=== PATIENT | female | born 1990 | race Hispanic/Latino ===

== ENCOUNTER 2018-09-22 15:31 | Outpatient (CLI) | payer OTHER, SELFPAY | END 2018-09-22 16:25 | disposition home or self-care (01) | LOC: LABOR 16:07 → OB 09-25 12:28 | PROVIDERS: PCP Nurse Practitioner Family | DX: O24.419 Gestational diabetes mellitus in pregnancy, unspecified control (principal); Z3A.37 37 weeks gestation of pregnancy | CPT/HCPCS: 59025; G0378; G0379 ==

== ENCOUNTER 2018-09-26 13:57 | Outpatient (CLI) | payer OTHER, SELFPAY | END 2018-09-26 14:45 | disposition home or self-care (01) | LOC: LABOR 14:23 → OB 09-27 13:54 | PROVIDERS: PCP Nurse Practitioner Family; Visit Provider Obstetrics & Gynecology | DX: O24.415 Gestational diabetes mellitus in pregnancy, controlled by oral hypoglycemic drugs (principal); Z3A.38 38 weeks gestation of pregnancy | CPT/HCPCS: 59025; G0378; G0379 ==

== ENCOUNTER 2018-09-29 14:04 | Outpatient (CLI) | payer OTHER, SELFPAY | END 2018-09-29 14:50 | disposition home or self-care (01) | LOC: LABOR 14:50 → OB 10-03 09:36 | PROVIDERS: PCP Nurse Practitioner Family | DX: O24.419 Gestational diabetes mellitus in pregnancy, unspecified control (principal); Z3A.38 38 weeks gestation of pregnancy | CPT/HCPCS: 59025; G0378; G0379 ==

== ENCOUNTER 2018-10-02 14:54 | Outpatient (CLI) | payer OTHER, SELFPAY | END 2018-10-02 16:40 | disposition home or self-care (01) | LOC: LABOR 15:26 → OB 10-04 13:09 | PROVIDERS: PCP Nurse Practitioner Family | DX: O24.419 Gestational diabetes mellitus in pregnancy, unspecified control (principal); Z3A.39 39 weeks gestation of pregnancy | CPT/HCPCS: 59025; 59050; G0378; G0379 ==

== ENCOUNTER 2018-10-03 04:55 | Inpatient (IN) | payer OTHER, SELFPAY ==
[2018-10-03] MEDS: LACTATED RINGERS 1,000 ML 100 ML IV (07:15)
--- NOTE | 2018-10-03 07:25 | PM.AN.REGBLK ---
Regional Block Pre-procedure Procedure: Continuous Lumbar Epidural for L&D Attending OB provider: Clayton Saravia PMH/ROS narrative: term labor, gestational diabetes on metformin well controlled. Hx: No personal or family history of anesthesia problems. PSH/Anesthesia history narrative: 2 previous , epidural analgesia, no complications ASA Class: II Labs: Hct 36.4 % (36-46) 10/03/18 07:54 Plt Count 184 X10^3/uL (150-400) 10/03/18 07:54 Medications: Current Medications Generic Name Dose Route Start Last Admin Trade Name Freq PRN Reason Stop Dose Admin Hydrocodone Bitart/Acetaminophen 1 tab 10/03/18 13:09 [place] 5/325 PO Q4HR TESSA Benzocaine 1 spray 10/03/18 13:09 Dermoplast [place] TOP Q1HR PRN perineal pain Docusate Sodium 250 mg 10/04/18 09:[address] [facility] Emollient Ointment 1 applic 10/03/18 13:09 Nhu-H-Wvitsr TOP PRN PRN Tenderness Ferrous Gluconate 324 mg 10/04/18 09:[address] [facility] Ibuprofen 600 mg 10/03/18 13:09 Advil PO Q6HR PRN Pain, Mild (1-3) Ketorolac Tromethamine 30 mg 10/03/18 13:09 Toradol IV Q6HR PRN Pain, Moderate (4-6) Naloxone HCl 0.2 mg 10/03/18 13:09 Narcan IV Q2MIN PRN Opiate Reversal Oxycodone/Acetaminophen 2 tab 10/03/18 13:09 Percocet 5/[address] [facility] Vit/Calcium/Iron/Folic Ac 1 tab 10/04/18 09:00 [address]ren[address]abs [address] PO DAILY [facility] Allergies: NKDA --: CSE: Seated. Monitors. Sterile prep/drape. L3-4 identified by palpation and surface landmarks. Lidocaine local. Hustead advanced with RYAN saline at 5 cm. 27g Pencan passed through Hustead. Clear CSF. 1mL 0.25% MPF Bupivacaine injected intrathecal. Catheter advanced to 11cm at skin, 6cm in epidural space. Test dose at 0733 with 3mL 1.5% lidocaine with epi, negative. Catheter secured. Tegaderm. Infusion of 0.125% bupivacaine with fentanyl 2mcg/mL initiated at 0741. Pt comfortable. VSS.
--- NOTE | 2018-10-03 07:53 | P.HPOB_ITS ---
OB HPI Date/Time Date of admission: 10/03/18 Date Patient Seen: 10/03/18 Time Patient Seen: 07:45 History of Present Condition Chief complaint: EVALUATION OF LABOR : 3 Para: 2 Estimated Date of Delivery: 10/07/18 Estimated Gestational Age (weeks): 39 3 Narrative: Elana Still is a 28 year old female three para two who transferred care from the [facility] at 35 weeks of . The patient was a gestational diabetic though her 1 hour screen was 135. She is placed on metformin and transferred care because of her gestational diabetes. Her blood sugars have remained absolutely normal. Her weight has been stable. She has remained normotensive. Her urines have been negative for glucose and protein. All of her antepartum laboratory data is within normal limits. Patient presented in active labor History of Present care: good care, initiated at week # (11) and number of visits (13) Dating criteria: LMP confirmed by 1st trimester US Ultrasounds: normal 1st trimester US and normal mid trimester US Obstetrical complications: gestational diabetes Medical complications: none Preadmission Labs Blood type: O (+) positive -: Antibody screen: negative, Cystic fibrosis screen: unknown, GBS status: negative (Done at the [facility]), HBsAG: negative, HIV: negative, HSV 1: negative, HSV 2: negative and RPR/VDLR: negative -: Chlamydia screen: detected (Negative) and Gonorrhea screen: detected (Negative) -: Rubella: immune and Varicella: immune HCT: 30.5 HCAB: negative PAP: Normal Integrated screen: Negative 1 hr GTT: 135 Evaluation Evaluation Variability: Moderate (11-25) monitor accelerations: Present monitor decelerations: Absent Contraction Frequency (minutes): 3 Uterine Contraction Intensity: Strong/Firm Category of Tracing: I Cervical dilation (cm): 3 Cervical effacement (%): 80 station: 0 Non-invasive Membranes Rupture Test: positive [facility] Medical History Headache (Chronic) Migraines (Chronic) Surgical History Anesthesia (Resolved) History of appendectomy (Resolved ~2010) History of tonsillectomy (Resolved ~2010) [place] teeth removed (Resolved ~2014) Family History (Updated 09/29/18 @ 21:11 by Jacquie Barker) Father Diabetes mellitus History of heart disease Hypertension Stroke Grandfather Mental health problem Grandmother Diabetes mellitus History of heart disease Hypertension Family History Father Diabetes mellitus History of heart disease Hypertension Stroke Grandfather Mental health problem Grandmother Diabetes mellitus History of heart disease Hypertension Review of Systems Review of Systems All systems reviewed & are unremarkable except as noted in HPI and below Exam Const General: cooperative and healthy appearing HENMT Head: normal to inspection Ears: hearing grossly normal bilaterally Nose: external nose normal Face and sinus: normal facial exam Mouth: oral mucosae normal, lip normal, tongue normal and moist mucous membranes Teeth and gingiva: dentition normal Throat: posterior oropharynx normal Eyes General: appearance normal, both eyes and all related structures Neck Neck: normal visual inspection and full ROM Chest Chest: normal inspection of the chest and normal palpation of entire chest wall Breast inspection: normal inspection of the breasts and normal inspection of the axillae Breast Palpation: normal palpation of the breasts and normal palpation of the axillae Resp Effort & Inspection: normal respiratory effort Auscultation: clear to auscultation bilaterally Cardio Palpation: normal PMI Rate: regular rate Rhythm: regular rhythm Heart Sounds: S1 normal and S2 normal GI Inspection: normal to inspection Palpation: soft and no hepatosplenomegaly Percussion: normal to percussion Auscultation: normal bowel sounds OB/External & Speculum: external exam normal Manual OB Exam: dilated 3, effaced 75% and station 0 Presentation: vertex Amniotic Fluid: clear Back/Spine/Pelvis Thoracic/Lumbar Spine: thoracic and lumbar spine normal to inspection Skin General: no rashes or lesions noted Neuro General: alert, oriented x3, tone normal and moves all extremities Cognition: normal cognition Speech: speech normal Gait: normal gait Motor: muscle tone normal throughout Sensory Exam: no sensory deficits noted Extrem General: normal to inspection and normal exam except as noted Psych Appearance: grossly normal and well kempt Mental Status: mental status grossly normal Speech and Movement: speech and movement normal Assessment and Plan Assessment and Plan Assessment and Plan narrative: Term intrauterine Gestational diabetes on metformin normal blood sugar Activel labor with rupture membranes Plan is for epidural anesthesia
[2018-10-03 08:02] LABS: Add Manual Diff / Slide Review NO; Basophils Absolute Auto 0 /uL (0-100); Basophils Percent Auto 0.2 % (0-2); Eosinophils Absolute Auto 200 /uL (0-450); Eosinophils Percent Auto 1.6 % (2-4); Hematocrit 36.4 % (36-46); Hemoglobin 12.3 g/dL (12.0-16.0); Lymphocytes Absolute Auto 2400 /uL (1100-4500); Lymphocytes Percent Auto 22.8 % (25-40); Mean Corpuscular Hemoglobin 28.1 PG (26-34); Mean Corpuscular Volume 82.8 fL (80-100); Monocytes Absolute Auto 700 /uL (0-900); Monocytes Percent Auto 6.4 % (3-14); Neutrophils Absolute Auto 7200 /uL (1500-7000); Platelet Count 184 X10^3/uL (150-400); Red Blood Cell Count 4.39 X10^6/uL (4.0-5.2); Red Cell Distribution Width 16.9 % (11.6-14.8); White Blood Cell Count 10.4 X10^3/uL (4.5-11.0)
[2018-10-03 09:02] VITALS: BP 132/73
[2018-10-03] MEDS: PENICILLIN G POTASSIUM 5,000,000 UNIT in DEXTROSE 5% IN WATER 250 ML IV (09:13)
--- NOTE | 2018-10-03 10:28 | PM.OBPRVD ---
Delivery date: 10/03/18 Intrapartal events: None Cervical ripening method: none Induction method: none Delivery monitor: external FHT and external uterine Route of delivery: L&D Laceration Description: None Estimated blood loss (mL): 200 Anesthesia type: Epidural Complications: None Narrative: Patient presented in active labor. Had spontaneous rupture membranes with light meconium. Had a rapid labor and spontaneous vaginal delivery of a live-born male with scores of nine at 1 minute nine at 5 minutes in good condition. There was no episiotomy or perineal tear. There are no cervical or vaginal lacerations. There were no periurethral lacerations. Placenta delivered spontaneously. Cord had three vessels. Cord blood was obtained. Pitocin was administered. Estimated blood loss was 200 cc Plan for aftercare: Routine care
--- NOTE | 2018-10-03 16:26 | P.PCN_ITS ---
Regional Block Pre-procedure Procedure: Continuous Lumbar Epidural for L&D Attending OB provider: Clayton Saravia PMH/ROS narrative: term labor, gestational diabetes on metformin well controlled. Hx: No personal or family history of anesthesia problems. PSH/Anesthesia history narrative: 2 previous , epidural analgesia, no complications ASA Class: II Labs: Hct 36.4 % (36-46) 10/03/18 07:54 Plt Count 184 X10^3/uL (150-400) 10/03/18 07:54 Medications: Current Medications Generic Name Dose Route Start Last Admin Trade Name Freq PRN Reason Stop Dose Admin Hydrocodone Bitart/Acetaminophen 1 tab 10/03/18 13:09 [place] 5/325 PO Q4HR TESSA Benzocaine 1 spray 10/03/18 13:09 Dermoplast [place] TOP Q1HR PRN perineal pain Docusate Sodium 250 mg 10/04/18 09:00 Colace PO DAILY [facility] Emollient Ointment 1 applic 10/03/18 13:09 Gyj-S-Ulaoay TOP PRN PRN Tenderness Ferrous Gluconate 324 mg 10/04/18 09:00 Fergon PO DAILY [facility] Ibuprofen 600 mg 10/03/18 13:09 Advil PO Q6HR PRN Pain, Mild (1-3) Ketorolac Tromethamine 30 mg 10/03/18 13:09 Toradol IV Q6HR PRN Pain, Moderate (4-6) Naloxone HCl 0.2 mg 10/03/18 13:09 Narcan IV Q2MIN PRN Opiate Reversal Oxycodone/Acetaminophen 2 tab 10/03/18 13:09 Percocet 5/325 PO Q4HR [facility] Vit/Calcium/Iron/Folic Ac 1 tab 10/04/18 09:00 Prenatabs Rx PO DAILY [facility] Allergies: NKDA --: CSE: Seated. Monitors. Sterile prep/drape. L3-4 identified by palpation and surface landmarks. Lidocaine local. Hustead advanced with RYAN saline at 5 cm. 27g Pencan passed through Hustead. Clear CSF. 1mL 0.25% MPF Bupivacaine injected intrathecal. Catheter advanced to 11cm at skin, 6cm in epidural space. Test dose at 0733 with 3mL 1.5% lidocaine with epi, negative. Catheter secured. Tegaderm. Infusion of 0.125% bupivacaine with fentanyl 2mcg/mL initiated at 0741. Pt comfortable. VSS.
[2018-10-03 16:54] VITALS: TEMP 36.4
[2018-10-03] MEDS: IBUPROFEN 600 MG TABLET PO ×2 (16:54→23:09)
[2018-10-03] MEDS: HYDROCODONE/ACET 5/325 TABLET 1 TAB PO (20:15)
[2018-10-04 05:50] LABS: Hematocrit 32.4 % (36-46); Hemoglobin 10.9 g/dL (12.0-16.0)
[2018-10-04] MEDS: IBUPROFEN 600 MG TABLET PO (06:40)
--- NOTE | 2018-10-04 07:18 | PM.OBDS.1 ---
Discharge Providers Date of admission: 10/03/18 04:55 Discharge Date: 10/04/18 Primary care physician: CONSTANZA Vo Consults: 10/03/18 13:09 Consult to Tip Out Worker Routine Comment: Consult to Lift Truck Mechanic Routine Comment: Discharge provider: Clayton Saravia MD Summary Date Patient Seen: 10/04/18 Time Patient Seen: 07:18 Procedures: Epidural anesthesia Artificial rupture membranes Spontaneous vaginal delivery Hospital Course: The patient is a 28-year-old three para two who presented in active labor. Patient was a gestational diabetic on metformin. Membranes were ruptured and fluid showed light meconium. An epidural was placed. Patient made rapid progress to complete and delivered spontaneously a live born male with scores of nine at 1 minute nine at 5 minutes in good condition. The baby weighed 9 lb 4 oz. There were no perineal tears no vaginal tears no cervical tears. The estimated blood loss was 200 cc. Post delivery the patient did well. She remained afebrile stable vital signs and was progressively alimented and ambulated. She was discharged home for follow-up in four weeks Peripartum Data Delivery Method: Natural Vaginal Laceration description: None complications: none Status at Discharge Cognitive/behavioral status at discharge: oriented Functional status at discharge: independent ambulation Overall status at discharge: patient is progressing back to baseline Time Spent with Patient Total time spent providing and/or coordinating discharge services: Objective Labs Result Diagrams: 10/04/18 05:30 Labs: Laboratory Results - last 24 hr 10/03/18 10/03/18 10/04/18 07:54 07:54 05:30 WBC 10.4 RBC 4.39 Hgb 12.3 10.9 L Hct 36.4 32.4 L MCV 82.8 MCH 28.1 MCHC 34.0 RDW 16.9 H Plt Count 184 Neut % (Auto) 69.0 Lymph % (Auto) 22.8 L [place] % (Auto) 6.4 Eos % (Auto) 1.6 L Baso % (Auto) 0.2 Neut # (Auto) 7200 H Lymph # (Auto) 2400 [place] # (Auto) 700 Eos # (Auto) 200 Baso # (Auto) 0 Blood Type O Positive Antibody Screen Negative Exam Narrative Exam Narrative: Fundus U minus two Lochia scant Perineum without ecchymosis Discharge Plan Discharge Plan Patient Disposition: Home Discharge Med Rec/Prescriptions Prescriptions: New Dermoplast (with menthol) 20-0.5 % Aerosol 1 spray topical Q1HR PRN (Reason: perineal pain) Qty: 1 RF: 0 oxycodone-acetaminophen 5-325 mg Tablet 2 tab PO Q4HR Qty: 10 RF: 0 ibuprofen 600 mg Tablet 600 mg PO Q6HR PRN (Reason: Pain, Mild (1-3)) Qty: 14 RF: 0 docusate sodium 250 mg Capsule 250 mg PO DAILY Qty: 14 RF: 0 Ymv-O-Vowqla Cream 1 applic topical PRN PRN (Reason: Tenderness) Qty: 1 RF: 0 ferrous gluconate 324 mg (38 mg iron) Tablet 324 mg PO DAILY Qty: 60 RF: 0 Follow up/Referrals: Holly Fox ARNP [Primary Care Provider] - Clayton Saravia MD [Physician] - 10/27/18 Provider Discharge Instructions Diet: Diet as Tolerated Activity: Routine Skin/Wound/Dressing Care Report to your healthcare provider any signs of infection, such as:: chills, fever, increased pain, unusual drainage and unusual redness Discharge Data Primary Care Provider: Holly Fox Attending Provider: Clayton Saravia Admit Date/Time: 10/03/18 04:55
[2018-10-04] MEDS: PRENATAL VIT,CALC/IRON/FOLIC 1 TABLET 1 TAB PO (10:22)
[2018-10-04] MEDS: FERROUS GLUCONATE 324 MG TABLET PO (10:22)
[2018-10-04] MEDS: DOCUSATE 250 MG CAPSULE PO (10:22)
[2018-10-04 13:17] VITALS: BP 132/73; PULSE 80; RESP 18; TEMP 36.4
== END 2018-10-04 15:30 | disposition home or self-care (01) | DRG 807 ==
PROVIDERS: PCP Nurse Practitioner Family
DX: O24.425 Gestational diabetes mellitus in childbirth, controlled by oral hypoglycemic drugs (principal); Z37.0 Single live birth; Z3A.39 39 weeks gestation of pregnancy
CPT/HCPCS: 01967; 36415; 59050; 59410; 85014; 85018; 85025; 86850; 86900; 86901; G0379; J2540

== ENCOUNTER → 2019-10-10 15:25 | Outpatient (CLI) | payer OTHER, SELFPAY | PROVIDERS: PCP Nurse Practitioner Family; Visit Provider Obstetrics & Gynecology | DX: R82.90 Unspecified abnormal findings in urine (principal) | CPT/HCPCS: 87086 ==

== ENCOUNTER → 2019-10-23 16:58 | Outpatient (CLI) | payer OTHER, SELFPAY ==
[2019-10-24 19:27] LABS: Strep Grp B PCR NEG for Grp B Strep
== END ==
PROVIDERS: PCP Nurse Practitioner Family; Visit Provider Obstetrics & Gynecology
DX: Z34.83 Encounter for supervision of other normal pregnancy, third trimester (principal); Z3A.36 36 weeks gestation of pregnancy
CPT/HCPCS: 87653

== ENCOUNTER 2019-11-13 12:14 | Inpatient (IN) | payer OTHER, SELFPAY ==
[2019-11-13] MEDS: METHYLERGONOVINE 0.2 MG/ML VIAL IM (13:15)
[2019-11-13] MEDS: fentaNYL 100 MCG/2 ML INJ (13:35)
[2019-11-13 14:01] LABS: Add Manual Diff / Slide Review NO; Basophils Absolute Auto 100 /uL (0-100); Basophils Percent Auto 0.4 % (0-2); Eosinophils Absolute Auto 200 /uL (0-450); Eosinophils Percent Auto 1.5 % (2-4); Hematocrit 38.4 % (36-46); Hemoglobin 12.3 g/dL (12.0-16.0); Lymphocytes Absolute Auto 4000 /uL (1100-4500); Lymphocytes Percent Auto 28.7 % (25-40); Mean Corpuscular HGB Conc 32.1 % (30-36); Mean Corpuscular Hemoglobin 26.8 PG (26-34); Mean Corpuscular Volume 83.6 fL (80-100); Monocytes Absolute Auto 1200 /uL (0-900); Monocytes Percent Auto 8.6 % (3-14); Neutrophils Absolute Auto 8400 /uL (1500-7000); Neutrophils Percent Auto 60.8 % (50-75); Platelet Count 194 X10^3/uL (150-400); Red Blood Cell Count 4.59 X10^6/uL (4.0-5.2); Red Cell Distribution Width 16.3 % (11.6-14.8); White Blood Cell Count 13.9 X10^3/uL (4.5-11.0)
[2019-11-13 14:19] LABS: COVID19 -Nasal RAPID Negative (Negative)
[2019-11-13 14:50] VITALS: BP 126/88
[2019-11-13] MEDS: IBUPROFEN 600 MG TABLET PO (15:49)
[2019-11-13 17:24] LABS: Hematocrit 34.4 % (36-46); Hemoglobin 11.3 g/dL (12.0-16.0)
--- NOTE | 2019-11-13 18:33 | P.HPOB_ITS ---
OB HPI Date/Time Date of admission: 11/13/19 Date Patient Seen: 11/13/19 Time Patient Seen: 12:30 History of Present Condition Chief complaint: Labor & Delivery : 4 Para: 3 Estimated Date of Delivery: 11/17/19 Estimated Gestational Age (weeks): 39+ 3 Narrative: Elana Still is a 29 year old female 4 para 3 who presented to Labor and delivery in active labor an 8-9 cm dilated. Shortly after arrival she had spontaneous rupture membranes with moderate meconium stained amniotic fluid. Indications Other reason(s) for admission: Active labor History of Present care: good care, initiated at week # (9), number of visits (9) and pounds weight gain (37) Dating criteria: LMP confirmed by 1st trimester US Ultrasounds: normal 1st trimester US and normal mid trimester US Obstetrical complications: none Medical complications: none Preadmission Labs Blood type: O (+) positive -: Antibody screen: negative, GBS status: negative, HBsAG: negative, HIV: negative and RPR/VDLR: negative -: Chlamydia screen: not detected and Gonorrhea screen: not detected -: Rubella: immune HCT: 34.4 PAP: Normal 1 hr GTT: 170 3 hr GTT: 1 hr (175), 2 hr (178) and 3 hr (76) Fasting blood glucose: 84 Prior (ies) History: Three spontaneous vaginal deliveries. Gestational diabetes with the 2nd and 3rd pregnancies. Evaluation Evaluation Baseline heart rate: 140 Contraction Frequency (minutes): 3 Uterine Contraction Intensity: Strong/Firm Cervical dilation (cm): 8 Cervical effacement (%): 100 station: -2 Laboratory results: Laboratory Tests 11/13/19 11/13/19 11/13/19 12:20 12:20 13:55 WBC 13.9 H RBC 4.59 Hgb 12.3 Hct 38.4 MCV 83.6 MCH 26.8 MCHC 32.1 RDW 16.3 H Plt Count 194 Neut % (Auto) 60.8 Lymph % (Auto) 28.7 [place] % (Auto) 8.6 Eos % (Auto) 1.5 L Baso % (Auto) 0.4 Neut # (Auto) 8400 H Lymph # (Auto) 4000 [place] # (Auto) 1200 H Eos # (Auto) 200 Baso # (Auto) 100 COVID-19 PCR Negative Blood Type O Positive Antibody Screen Negative Crossmatch See Detail 11/13/19 17:15 WBC RBC Hgb 11.3 L Hct 34.4 L MCV MCH MCHC RDW Plt Count Neut % (Auto) Lymph % (Auto) [place] % (Auto) Eos % (Auto) Baso % (Auto) Neut # (Auto) Lymph # (Auto) [place] # (Auto) Eos # (Auto) Baso # (Auto) COVID-19 PCR Blood Type Antibody Screen Crossmatch Comments: Bulging bag of water [facility] Medical History (Updated 10/10/19 @ 14:51 by Raissa Bae MD) Bilateral knee pain (Acute) Gestational diabetes mellitus, class A2 (Acute) Group B Streptococcus carrier state affecting (Acute) H/O macrosomia in infant in prior , currently (Acute) Headache (Chronic) History of gestational diabetes (Acute) Maternal obesity affecting , antepartum (Acute) Migraines (Chronic) Obese (Acute) Pain in right wrist (Acute) Pain of both hip joints (Acute) Plantar fasciitis (Acute) (spontaneous vaginal delivery) (Acute) Surgical History (Updated 09/24/19 @ 16:37 by Minnie Santos RN) Anesthesia (Resolved) History of appendectomy (Resolved ~2010) History of tonsillectomy (Resolved ~2010) [place] teeth removed (Resolved ~2014) Family History Father Diabetes mellitus History of heart disease Hypertension Stroke Grandfather Mental health problem Alzheimer disease Grandmother Diabetes mellitus History of heart disease Hypertension Mother Arthritis, rheumatoid Grandfather Diabetes mellitus Family estrangement Grandmother Unknown family medical history Social History marital status: ([facility] [phone]) number of children: 3 household members: spouse and children lives independently: Yes pets and animals: No education level: high school occupational status: unemployed (Homemaker) jose/oriental orthodox: [employer]ism special jose needs: No Smoking Status: Never smoker second hand exposure: No alcohol intake: never substance use type: does not use caffeine: Yes Type(s) of exercise: walking frequency: 3-4 times per week duration: 30-45 minutes/day Meds Home Medications and Allergies Home Medications Medication Instructions Recorded Confirmed Type prenat.vits,adan,bmh-zbpl-zykjj 1 tab PO DAILY 10/27/18 11/13/19 History Allergies Allergy/AdvReac Type Severity Reaction Status Date / Time lactose AdvReac Severe Bloating Verified 11/06/19 15:35 Exam Vital Signs (past 8 hours): - 11/13/19 14:50 Blood Pressure 126/88 Narrative Exam Narrative: Generally: Patient in moderate distress secondary to contractions and imminent delivery Objective Labs Result Diagrams: 11/13/19 17:15 Labs: Laboratory Results - last 24 hr 11/13/19 11/13/19 11/13/19 12:20 12:20 13:55 WBC 13.9 H RBC 4.59 Hgb 12.3 Hct 38.4 MCV 83.6 MCH 26.8 MCHC 32.1 RDW 16.3 H Plt Count 194 Neut % (Auto) 60.8 Lymph % (Auto) 28.7 [place] % (Auto) 8.6 Eos % (Auto) 1.5 L Baso % (Auto) 0.4 Neut # (Auto) 8400 H Lymph # (Auto) 4000 [place] # (Auto) 1200 H Eos # (Auto) 200 Baso # (Auto) 100 COVID-19 PCR Negative Blood Type O Positive Antibody Screen Negative Crossmatch See Detail 11/13/19 17:15 WBC RBC Hgb 11.3 L Hct 34.4 L MCV MCH MCHC RDW Plt Count Neut % (Auto) Lymph % (Auto) [place] % (Auto) Eos % (Auto) Baso % (Auto) Neut # (Auto) Lymph # (Auto) [place] # (Auto) Eos # (Auto) Baso # (Auto) COVID-19 PCR Blood Type Antibody Screen Crossmatch Assessment and Plan Assessment and Plan Assessment and Plan narrative: Assessment: 29-year-old 4 para 3 at 39-,3/7 weeks gestation in active labor with imminent delivery Spontaneous rupture of membranes with moderate meconium stained fluid Group B strep negative Plan: RT present Pediatrics called Back up OB called for possible shoulder dystocia Expected management to delivery
--- NOTE | 2019-11-13 18:38 | P.PCNOB_ITS ---
Events: Meconium Stained Fluid Labor & Delivery Delivery date: 11/13/19 Intrapartal events: Precipitous Labor < 3 hours Cervical ripening method: none Induction method: none Delivery monitor: external FHT Route of delivery: Episiotomy description: None L&D Laceration Description: None Estimated blood loss (mL): 1,200 Anesthesia type: None Complications: hemorrhage Narrative: Patient had spontaneous rupture membranes with moderate meconium stained amniotic fluid. With the next contraction she pushed x2, and the vertex delivered over an intact perineum at 12:31 p.m.. No nuchal cord. There was a mild shoulder dystocia that was relieved with cipriano Khanna maneuver. The infant was placed on mom's abdomen. The cord was double clamped and cut. Cord bloods were obtained. 10 units of Pitocin were given IM. The placenta delivered intact with a 3 vessel cord at 12:46 p.m.. No lacerations. Male. Apgars 8 at 1 minute and 9 at 5 minutes. Weight 11 lb 15 oz. . Baby was in the nursery due to low blood sugars and tachypnea. Mom had increased bleeding and after exploration of the uterine cavity there was a large amount of clot that was manually extracted. Her uterus was firm after that. Bleeding slowed to minimal. Mom was stable to recovery. Baby 1: gender: Male Presentation: vertex Placenta delivery description: Spontaneous cord vessel description: 3 Vessels score (1 min): 8 score (5 min): 9 Narrative: transferred to [place] Plan for aftercare: Mom to routine care
[2019-11-13] MEDS: CALCIUM CARBONATE 500 MG TAB PO (21:37)
[2019-11-14] MEDS: IBUPROFEN 600 MG TABLET PO ×2 (00:04→08:44)
[2019-11-14] MEDS: OXYCODONE/ACETAMINOPHEN 5/325 TABLET 1 TAB PO ×2 (02:17→08:44)
[2019-11-14 06:17] LABS: Hematocrit 28.2 % (36-46); Hemoglobin 9.4 g/dL (12.0-16.0)
[2019-11-14 08:15] VITALS: BP 140/83; PULSE 97; RESP 16; TEMP 36.1
[2019-11-14] MEDS: DOCUSATE 100 MG CAPSULE PO (08:44)
[2019-11-14] MEDS: PRENATAL VIT,CALC/IRON/FOLIC 1 TABLET 1 TAB PO (08:44)
--- NOTE | 2019-11-14 18:07 | PM.OBDS.1 ---
Discharge Providers Provider Date of admission: 11/13/19 12:14 Discharge Date: 11/14/19 Primary care physician: CONSTANZA Vo Discharge provider: Raissa Bae MD Summary Hospital Course Date Patient Seen: 11/14/19 Time Patient Seen: 07:40 Procedures: Spontaneous vaginal delivery Evacuation of uterine clots Hospital Course: Patient is a 29-year-old 4 para 4 day # 1 status post spontaneous vaginal delivery. The patient presented to Labor and delivery in active labor at 8 cm dilated. She had a spontaneous rupture of membranes with moderate meconium stained amniotic fluid. With the next contraction she had a spontaneous vaginal delivery of a male infant. The placenta delivered intact with a three-vessel cord. She had some increased bleeding about 20 minutes after delivery and had a manual extraction of clot from the uterus. She had no lacerations. On day # 1 she is doing well. She was ambulating without assistance. She wanted to be released from the hospital to go to [place] to be with the baby who was transported there due to low blood sugars and tachypnea. Peripartum Data Delivery Method: Natural Vaginal Laceration Description: None Episiotomy description: None Procedures: Spontaneous vaginal delivery Manual extraction of uterine clots complications: other (Retained uterine clots) [place] 1: Gender: Male Disposition of : NICU Status at Discharge Cognitive/behavioral status at discharge: oriented Functional status at discharge: independent ambulation Overall status at discharge: patient is progressing back to baseline Time Spent with Patient Time attestation: Total time spent providing and/or coordinating discharge services: Time spent: Less than 30 minutes Objective Labs Result Diagrams: 11/14/19 06:00 Labs: Laboratory Results - last 24 hr 11/14/19 06:00 Hgb 9.4 L Hct 28.2 L Exam Vital Signs (past 8 hours): Generally: Patient is sitting up in bed, pumping, no acute distress Fundus: Firm at U +1 Extremities: Negative Homans, trace edema Discharge Plan Discharge Plan Patient Disposition: Home Discharge comment: Call with fever, chills or bleeding vaginally more than a pad in an hour Discharge orders & Medications Prescriptions: New ferrous sulfate [iron] 325 mg (65 mg iron) tablet 325 mg PO DAILY Qty: 30 RF: 0 ibuprofen 600 mg tablet 600 mg PO Q6H PRN (Reason: cramping) Qty: 20 RF: 2 oxycodone-acetaminophen [Percocet] 5-325 mg tablet 1 tab PO Q4-6H PRN (Reason: pain) Qty: 14 RF: 0 Continued prenat.vits,adan,ujf-aewa-cyyya tablet 1 tab PO DAILY RF: 0 Follow up/Referrals: Raissa Bae MD [Physician] - 6 Weeks (December 26, [address] Bae for 6 week post check) Diet/Activity/Treatments Diet: Regular Activity: No intercourse for 6 weeks Skin/Wound/Dressing Care Report to your healthcare provider any signs of infection, such as:: chills, fever, increased pain and unusual drainage Visit Report/Discharge Packet Instructions: DI for Labor and Delivery, Vaginal Stand Alone Forms: Discharge: Care Discharge Data Primary Care Provider: Holly Fox Discharges patient from system. Discharge Date/Time: 11/14/19 10:05
== END 2019-11-14 10:05 | disposition home or self-care (01) | DRG 807 ==
PROVIDERS: Admitting Provider Obstetrics & Gynecology; PCP Nurse Practitioner Family; Referring Provider Obstetrics & Gynecology; Visit Provider Obstetrics & Gynecology
DX: O77.0 Labor and delivery complicated by meconium in amniotic fluid (principal); Z37.0 Single live birth; O62.3 Precipitate labor; Z3A.39 39 weeks gestation of pregnancy; Z11.59 Encounter for screening for other viral diseases
CPT/HCPCS: 36415; 59050; 59410; 85014; 85018; 85025; 86850; 86900; 86901; 87635; G0379; J2210; J3010

== ENCOUNTER → 2020-03-21 10:58 | Outpatient (CLI) | payer OTHER, SELFPAY ==
[2020-03-21 11:32] LABS: Hemoglobin A1C% w Est Avg Glu 5.7 % (4.0-6.0)
[2020-03-21 11:59] LABS: Glucose Fasting 84 mg/dL (70-100)
[2020-03-21 13:21] LABS: Glucose Tol Interpretation INTERPRETATION
[2020-03-21 13:30] LABS: Glucose 1 Hour 150 mg/dL (70-170)
[2020-03-21 14:36] LABS: Glucose 2 Hour 127 mg/dL (70-140)
== END ==
PROVIDERS: PCP Nurse Practitioner Family; Referring Provider Nurse Practitioner Family; Visit Provider Obstetrics & Gynecology
DX: O24.419 Gestational diabetes mellitus in pregnancy, unspecified control (principal)
CPT/HCPCS: 36415; 82951; 82952; 83036

== ENCOUNTER → 2020-06-09 16:29 | Outpatient (CLI) | payer OTHER, SELFPAY ==
[2020-06-09 17:14] LABS: Add Manual Diff / Slide Review NO; Basophils Absolute Auto 0 /uL (0-100); Basophils Percent Auto 0.5 % (0-2); Eosinophils Absolute Auto 200 /uL (0-450); Hematocrit 39.2 % (36-46); Hemoglobin 13.2 g/dL (12.0-16.0); Lymphocytes Absolute Auto 2500 /uL (1100-4500); Mean Corpuscular HGB Conc 33.8 % (30-36); Mean Corpuscular Hemoglobin 28.7 PG (26-34); Mean Corpuscular Volume 84.8 fL (80-100); Monocytes Absolute Auto 600 /uL (0-900); Monocytes Percent Auto 8.3 % (3-14); Neutrophils Absolute Auto 4400 /uL (1500-7000); Neutrophils Percent Auto 56.2 % (50-75); Platelet Count 233 X10^3/uL (150-400); Red Blood Cell Count 4.62 X10^6/uL (4.0-5.2); White Blood Cell Count 7.8 X10^3/uL (4.5-11.0)
[2020-06-09 17:31] LABS: Alanine Aminotransferase 34 IU/L (<35); Albumin 4.7 g/dL (3.5-5.0); Albumin Globulin Ratio 1.4 (1.0-2.8); Alkaline Phosphatase 87 U/L (38-126); Aspartate Aminotransferase 34 IU/L (14-36); BUN Creatinine Ratio 28.8 (6-22); Bilirubin Total 0.1 mg/dL (0.2-1.3); Blood Urea Nitrogen 17 mg/dL (7-17); Calcium 9.6 mg/dL (8.4-10.2); Carbon Dioxide 29 mmol/L (22-32); Chloride 103 mmol/L (98-107); Estimated Glomerular Filt Rate > 60.0 mL/min (>60); Globulin 3.3 g/dL (1.7-4.1); Glucose 101 mg/dL (70-100); HEMOLYSIS < 15 (0-50); Potassium 4.3 mmol/L (3.4-5.1); Sodium 141 mmol/L (137-145)
[2020-06-09 18:03] LABS: Ferritin 21 ng/mL (6-137)
[2020-06-09 18:30] LABS: Total Iron Binding Capacity 410 ug/dL (265-497)
[2020-06-09 18:36] LABS: Free T4, Direct Thyroxine 0.76 ng/dL (0.78-2.19)
[2020-06-09 18:49] LABS: Thyroid Stimulating Hormone 0.655 uIU/mL (0.47-4.68)
== END ==
PROVIDERS: PCP Registered Nurse; Referring Provider Registered Nurse; Visit Provider Registered Nurse
DX: R53.83 Other fatigue (principal); Z86.2 Personal history of diseases of the blood and blood-forming organs and certain disorders involving the immune mechanism
CPT/HCPCS: 36415; 80053; 82728; 83550; 84439; 84443; 85025

== ENCOUNTER → 2020-07-11 12:58 | Outpatient (CLI) | payer OTHER, SELFPAY | PROVIDERS: PCP Registered Nurse; Visit Provider Family Medicine | DX: N64.4 Mastodynia (principal) | CPT/HCPCS: 87070; 87075; 87077; 87186; 87205 ==

== ENCOUNTER → 2020-07-22 15:41 | Outpatient (CLI) | payer OTHER, SELFPAY ==
[2020-07-22 16:27] LABS: Add Manual Diff / Slide Review NO; Basophils Absolute Auto 0 /uL (0-100); Basophils Percent Auto 0.5 % (0-2); Eosinophils Absolute Auto 200 /uL (0-450); Eosinophils Percent Auto 2.8 % (2-4); Hematocrit 39.6 % (36-46); Hemoglobin 13.2 g/dL (12.0-16.0); Lymphocytes Absolute Auto 2500 /uL (1100-4500); Lymphocytes Percent Auto 30.2 % (25-40); Mean Corpuscular HGB Conc 33.4 % (30-36); Mean Corpuscular Hemoglobin 28.2 PG (26-34); Mean Corpuscular Volume 84.4 fL (80-100); Monocytes Absolute Auto 600 /uL (0-900); Monocytes Percent Auto 7.6 % (3-14); Neutrophils Absolute Auto 4900 /uL (1500-7000); Neutrophils Percent Auto 58.9 % (50-75); Platelet Count 233 X10^3/uL (150-400); Red Cell Distribution Width 13.6 % (11.6-14.8); White Blood Cell Count 8.3 X10^3/uL (4.5-11.0)
[2020-07-22 16:33] LABS: Appearance Urine UA CLEAR; Bilirubin Urine UA NEGATIVE (NEGATIVE); Color Urine UA YELLOW; Glucose Urine UA NEGATIVE (Negative); Ketones Urine UA NEGATIVE (NEGATIVE); Leukocyte Esterase Urine UA NEGATIVE (NEGATIVE); Nitrite Urine UA NEGATIVE (Negative); Occult Blood Urine UA NEGATIVE (Negative); Protein Urine UA NEGATIVE (Negative); Specific Gravity Urine UA 1.025 (1.000-1.035); Urobilinogen Urine UA 0.2 E.U./dL (0.2)
[2020-07-22 16:47] LABS: Alanine Aminotransferase 35 IU/L (<35); Albumin 4.7 g/dL (3.5-5.0); Albumin Globulin Ratio 1.5 (1.0-2.8); Alkaline Phosphatase 93 U/L (38-126); Aspartate Aminotransferase 30 IU/L (14-36); BUN Creatinine Ratio 31.9 (6-22); Bilirubin Total 0.2 mg/dL (0.2-1.3); Blood Urea Nitrogen 15 mg/dL (7-17); Calcium 9.9 mg/dL (8.4-10.2); Carbon Dioxide 25 mmol/L (22-32); Chloride 104 mmol/L (98-107); Estimated Glomerular Filt Rate > 60.0 mL/min (>60); Globulin 3.2 g/dL (1.7-4.1); Glucose 133 mg/dL (70-100); HEMOLYSIS < 15 (0-50); Potassium 4.2 mmol/L (3.4-5.1); Sodium 138 mmol/L (137-145); Total Protein 7.9 g/dL (6.3-8.2)
[2020-07-22 16:55] LABS: Total Iron Binding Capacity 401 ug/dL (265-497)
[2020-07-22 17:04] LABS: Free T3, Triiodothyronine Free 4.37 pg/mL (2.77-5.27); Free T4, Direct Thyroxine 0.77 ng/dL (0.78-2.19)
[2020-07-22 17:17] LABS: Thyroid Stimulating Hormone 0.609 uIU/mL (0.47-4.68)
[2020-07-22 17:23] LABS: Ferritin 20 ng/mL (6-137)
[2020-07-22 17:38] LABS: Vitamin B12 868 pg/mL (239-931)
== END ==
PROVIDERS: PCP Registered Nurse; Referring Provider Registered Nurse; Visit Provider Registered Nurse
DX: R53.83 Other fatigue (principal)
CPT/HCPCS: 36415; 80053; 81003; 82607; 82728; 83550; 84439; 84443; 84481; 85025

== ENCOUNTER → 2020-11-26 16:08 | Outpatient (CLI) | payer OTHER, SELFPAY ==
--- NOTE | 2020-11-26 16:09 | DI.RAD.S_ITS ---
PROCEDURE: XR CERVICAL SPINE 2V OR 3V INDICATIONS: neck pain TECHNIQUE: 3 view(s) of the cervical spine were acquired. COMPARISON: None. FINDINGS: Bones: No fractures or dislocations to the T1 level. The lateral masses of C1 appear intact on the odontoid view. No suspicious bony lesions. Loss of lordosis which could be related to muscle spasm, rigidity or simply positional. Soft tissues: No prevertebral soft tissue swelling. IMPRESSION: Loss of lordosis; otherwise normal C-spine. Dictated by: Mason Rodriguez RR Interpreted: Eunice Burgos MD on 11/26/2020 at 17:12 Transcribed by: RAJ on 11/26/2020 at 17:12 Approved by: Eunice Burgos M.D. on 11/26/2020 at 18:07
== END ==
PROVIDERS: PCP Registered Nurse; Referring Provider Registered Nurse; Visit Provider Registered Nurse
DX: M54.2 Cervicalgia (principal)
CPT/HCPCS: 72040

== ENCOUNTER → 2020-11-28 18:57 | Outpatient (CLI) | payer OTHER, SELFPAY ==
--- NOTE | 2020-11-28 18:58 | DI.MRI.S_ITS ---
PROCEDURE: MR HEAD/BRAIN WO CON INDICATIONS: Headaches TECHNIQUE: Noncontrast axial T1 spin echo, axial T2 fast spin echo, sagittal and axial FLAIR, coronal T2 fast spin echo, axial gradient echo, axial diffusion and ADC through the brain. COMPARISON: None. FINDINGS: Image quality: Excellent. CSF Spaces: Basal cisterns are patent. No extra-axial fluid collections. Ventricles are normal in size and shape. Brain: No intracranial masses or hemorrhage. Recinos/white matter interface is normal. Brainstem appears normal. Diffusion-weighted images demonstrate no acute ischemic insult. No chronic ischemic insults. Normal intravascular flow voids are present. Skull and face: Calvarium has normal marrow signal. Orbits appear normal. Sinuses: Mild mucosal thickening in the maxillary sinuses. The mastoids are clear. IMPRESSION: 1. No intracranial disease process. 2. No abnormal intracranial mass or mass effect. 3. No intracranial hemorrhage. 4. Mild bilateral maxillary sinusitis. Dictated by: Padma Cortés MD, PhD on 12/01/2020 at 11:05 Approved by: Padma Cortés MD, PhD on 12/01/2020 at 11:07
== END ==
PROVIDERS: PCP Registered Nurse; Referring Provider Registered Nurse; Visit Provider Registered Nurse
DX: J32.0 Chronic maxillary sinusitis (principal); G43.919 Migraine, unspecified, intractable, without status migrainosus
CPT/HCPCS: 70551

== ENCOUNTER → 2021-03-03 16:20 | Outpatient (CLI) | payer BC, SELFPAY ==
[2021-03-03 17:34] LABS: Add Manual Diff / Slide Review NO; Basophils Absolute Auto 0 /uL (0-100); Basophils Percent Auto 0.3 % (0-2); Eosinophils Absolute Auto 200 /uL (0-450); Eosinophils Percent Auto 2.3 % (2-4); Hematocrit 35.6 % (36-46); Hemoglobin 12.2 g/dL (12.0-16.0); Lymphocytes Absolute Auto 2200 /uL (1100-4500); Lymphocytes Percent Auto 23.5 % (25-40); Mean Corpuscular HGB Conc 34.3 % (30-36); Mean Corpuscular Hemoglobin 28.2 PG (26-34); Mean Corpuscular Volume 82.5 fL (80-100); Monocytes Absolute Auto 700 /uL (0-900); Monocytes Percent Auto 7.1 % (3-14); Neutrophils Absolute Auto 6300 /uL (1500-7000); Neutrophils Percent Auto 66.8 % (50-75); Platelet Count 247 X10^3/uL (150-400); Red Blood Cell Count 4.32 X10^6/uL (4.0-5.2); Red Cell Distribution Width 13.9 % (11.6-14.8); White Blood Cell Count 9.5 X10^3/uL (4.5-11.0)
== END ==
PROVIDERS: PCP Registered Nurse; Referring Provider Nurse Practitioner Family; Visit Provider Nurse Practitioner Family
DX: R59.1 Generalized enlarged lymph nodes (principal)
CPT/HCPCS: 36415; 85025